=== PATIENT | female | born 1955 | race Caucasian/White ===

== ENCOUNTER 2017-12-01 08:31 | Emergency (ER) | payer BC ==
[2017-12-01 09:20] LABS: ABS Basophils 0 10^3/ul (0-0.2); ABS Eosinophils 0.1 10^3/ul (0-0.6); ABS Lymphocytes 1.4 10^3/ul (1.0-4.8); ABS Monocytes 0.6 10^3/ul (0-0.8); ABS Neutrophils 2.8 10^3/ul (1.5-7.7); ABS Nucleated RBC 0 10^3/ul; Hematocrit 43 % (35-47); Hemoglobin 14.7 g/dl (12.0-16.0); Lymphocyte % 27.9 % (25-47); Mean Corpuscular HGB Conc 35 g/dl (31-36); Mean Corpuscular Hemoglobin 32 pg (27-31); Mean Corpuscular Volume 94 fL (80-97); Mean Platelet Volume 9 um3 (7.4-10.4); Nucleated Red Blood Cells % 0; Platelet Count 207 10^3/ul (150-450); Red Blood Count 4.55 10^6/ul (4.0-5.4); Red Cell Distribution Width 13 % (10.5-15)
[2017-12-01 09:28] LABS: INR 0.9 (0.77-1.02)
--- NOTE | 2017-12-01 09:36 | RAD ---
HISTORY: Chest pain COMPARISONS: August 18, 2012 VIEWS: 1: frontal portable view of the chest at 9:15 AM FINDINGS: LINES AND TUBES: None. CARDIOMEDIASTINAL SILHOUETTE: The cardiomediastinal silhouette is normal for portable technique. PLEURA: The costophrenic angles are sharp. No pleural abnormalities are noted. LUNG PARENCHYMA: There is hyperinflation. ABDOMEN: The upper abdomen is clear. There is no subphrenic gas. BONES AND SOFT TISSUES: No bone or soft tissue abnormalities are noted. IMPRESSION: HYPERINFLATION. NO ACTIVE CARDIOPULMONARY DISEASE.
[2017-12-01 09:37] LABS: EGFR Non-African American 81.6 (>60)
[2017-12-01 12:02] LABS: Urine Appearance Clear; Urine Blood Negative (Negative); Urine Color Straw; Urine Ketones Negative (Negative); Urine Protein Negative (Negative); Urine Specific Gravity 1.008 (1.010-1.030); Urine Urobilinogen Negative (Negative)
[2017-12-01 12:34] VITALS: BP 140/81
--- NOTE | 2017-12-01 17:02 | ED ---
Shun Schroeder Thomas, scribed for Donis Carpenter MD on 12/01/17 at 0917 . HPI Chest Pain - HPI Summary HPI Summary: The patient is a 62 year old female presenting with episodes of chest pain that began yesterday. The episodes of pain last seconds, and she denies chest pain in the ED. She was recommended to present to the ED at the advice of her PMD. She describes the pain as an ache. Yesterday, the patient felt lightheaded. She denies nausea, vomiting, and near-syncope. - History of Current Complaint Chief Complaint: EDChestPainROMI Time Seen by Provider: 12/01/17 08:41 Hx Obtained From: Patient Onset/Duration: Started Days Ago - 1, Resolved Timing: Lasting Seconds Initial Severity: Mild Pain Intensity: 0 Pain Scale Used: 0-10 Numeric Character: Other: - Ache Aggravating Factor(s): Nothing Alleviating Factor(s): Spontaneous Resolution Associated Signs and Symptoms: Positive: Chest Pain, Other: - Lightheaded ( yesterday); NEGATIVE: nausea, vomiting, near-syncope - Allergy/Home Medications Allergies/Adverse Reactions: Allergies Allergy/AdvReac Type Severity Reaction Status Date / Time MS Ranitidine [Ranitidine] Allergy Unknown Verified 09/27/17 10:55 Reaction Details PMH/Surg Hx/FS Hx/Imm Hx Cardiovascular History: Reports: Hx Angina Denies: Hx Coronary Artery Disease, Hx Hypercholesterolemia, Hx Hypertension , Hx Myocardial Infarction, Hx Valvular Heart Disease Musculoskeletal History: Reports: Hx Back Problems - partial discectomy, Hx Osteoporosis Sensory History: Reports: Hx Contacts or Glasses Opthamlomology History: Reports: Hx Contacts or Glasses - Cancer History Cancer Type, Location and Year: had a cyt removed from left breast, - Surgical History Surgery Procedure, Year, and Place: partial discectomy 2000 Infectious Disease History: No Infectious Disease History: Denies: Traveled Outside the US in Last 30 Days - Family History Known Family History: Positive: Cardiac Disease - Mother decesased of [place] at 67 - Social History Alcohol Use: Daily Alcohol Amount: a beer per night Substance Use Type: Reports: None Smoking Status (MU): Never Smoked Tobacco Review of Systems Negative: Fever Positive: Chest Pain Negative: Vomiting, Nausea Neurological: Other - Lightheaded (yesterday) Negative: Syncope - near All Other Systems Reviewed And Are Negative: Yes Physical Exam - Summary Physical Exam Summary: VITAL SIGNS: Reviewed. GENERAL: Patient is a well-developed and nourished female who is lying comfortable in the stretcher. Patient is not in any acute respiratory distress. HEAD AND FACE: No signs of trauma. No ecchymosis, hematomas or skull depressions. No sinus tenderness. EYES: PERRLA, EOMI x 2, No injected conjunctiva, no nystagmus. EARS: Hearing grossly intact. Ear canals and tympanic membranes are within normal limits. MOUTH: Oropharynx within normal limits. NECK: Supple, trachea is midline, no adenopathy, no JVD, no carotid bruit, no c- spine tenderness, neck with full ROM. CHEST: Symmetric, no tenderness at palpation LUNGS: Clear to auscultation bilaterally. No wheezing or crackles. CVS: Regular rate and rhythm, S1 and S2 present, no murmurs or gallops appreciated. ABDOMEN: Soft, non-tender. No signs of distention. No rebound no guarding, and no masses palpated. Bowel sounds are normal. EXTREMITIES: FROM in all major joints, no edema, no cyanosis or clubbing. NEURO: Alert and oriented x 3. No acute neurological deficits. Speech is normal and follows commands. SKIN: Dry and warm Triage Information Reviewed: Yes Vital Signs On Initial Exam: Initial Vitals Temp Pulse Resp BP Pulse Ox 98.2 F 66 18 138/75 100 12/01/17 08:31 12/01/17 08:31 12/01/17 08:31 12/01/17 08:31 12/01/17 08:31 Vital Signs Reviewed: Yes Diagnostics - Vital Signs Vital Signs Temp Pulse Resp BP Pulse Ox 12/01/17 09:00 59 12 139/80 99 12/01/17 08:54 58 8 100 12/01/17 08:53 147/86 12/01/17 08:31 98.2 F 66 18 138/75 100 - Laboratory Result Diagrams: 12/01/17 09:10 12/01/17 09:10 Lab Statement: Any lab studies that have been ordered have been reviewed, and results considered in the medical decision making process. - Radiology CXR Xray Interpretation: No Acute Changes - HYPERINFLATION. NO ACTIVE CARDIOPULMONARY DISEASE. Dr. Carpenter has reviewed this report. Radiology Interpretation Completed By: Radiologist - EKG 09:42 Cardiac Rate: Bradycardia EKG Rhythm: Sinus Bradycardia - at 56 BPM EKG Interpretation: No ST elevations. Chest Pain Course/Dx - Course Assessment/Plan: The patient is a 62 year old female presenting with episodes of chest pain that began yesterday. The episodes of pain last seconds, and she denies chest pain in the ED. She was recommended to present to the ED at the advice of her PMD. She describes the pain as an ache. Yesterday, the patient felt lightheaded. Test results are without significant abnormalities. Two troponins four hours apart were 0.00. The patient continues to be asymptomatic without any chest pain. Test results are within normal limit. Therefore, the patient will be discharged home to follow up with primary care. The patient is hemodynamically stable and alert and oriented x 3. - Diagnoses Provider Diagnoses: Atypical chest pain Discharge - Discharge Plan Condition: Stable Disposition: HOME Patient Education Materials: Chest Pain (ED) Referrals: Octavia Sullivan MD [Primary Care Provider] - 3 Days Additional Instructions: Follow up with your primary care physician in three days. Return to the emergency department for any new or worsening symptoms. The documentation as recorded by the Shun keenan Thomas accurately reflects the service I personally performed and the decisions made by Jayden olmedo Walter, MD.
--- NOTE | 2017-12-03 09:08 | PN ---
Progress Note - Progress Note Date of Service: 12/01/17 Note: final urine culture results show group b strep 1-10,000. no complaints and no treatment required at this time.
== END 2017-12-01 12:33 | disposition home or self-care (01) ==
LOC: ED 08:31
DX: R07.89 Other chest pain (principal); Z88.8 Allergy status to other drugs, medicaments and biological substances
CPT/HCPCS: 36415; 71045; 80053; 81003; 81015; 82550; 82553; 83605; 83735; 83880; 84443; 84484; 85025; 85610; 85730; 87077; 87086; 93005; 99284

== ENCOUNTER 2019-04-07 10:14 | Emergency (ER) | payer BC ==
--- NOTE | 2019-04-07 10:17 | UC ---
Lower Extremity/Ankle HPI - HPI Summary HPI Summary: Patient is a 63 year old female, who present today to the urgent care with left ankle swelling for past 2 days. Noticed when she woke up in the morning on Monday. Denies any injury or trauma but reports a long drive to [place] prior to this. Earlier this week she had some knee pain posteriorly and swelling and pain. There is more pain than swelling. She denies any chest pain or shortness of breath. No fever, chills reported - History of Current Complaint Stated Complaint: SWOLLEN ANKLE Time Seen by Provider: 04/07/19 10:15 Hx Obtained From: Patient ?: No - postmenopausal - Allergies/Home Medications Allergies/Adverse Reactions: Allergies Allergy/AdvReac Type Severity Reaction Status Date / Time No Known Allergies Allergy Verified 04/07/19 10:26 Home Medications: Home Medications NK [No Home Medications Reported] 04/07/19 [History Confirmed 04/07/19] PMH/Surg Hx/FS Hx/Imm Hx - Additional Past Medical History Additional PMH: Past Medical History : None Past Surgical History: Partial discectomy in 2000 Family History : Noncontributory Social History : Occasional alcohol, non smoker, no drug use. 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 [place] Previously Healthy: Yes - Surgical History Surgical History: Yes Surgery Procedure, Year, and Place: partial discectomy 2000 - Family History Known Family History: Positive: Cardiac Disease - Mother decesased of [place] at 67 - Social History Alcohol Use: Daily Alcohol Amount: a beer per night Substance Use Type: None Smoking Status (MU): Never Smoked Tobacco - Immunization History Most Recent Tetanus Shot: <4years Review of Systems All Other Systems Reviewed And Are Negative: Yes Constitutional: Positive: Negative Skin: Positive: Other - Swelling of the left ankle Eyes: Positive: Negative ENT: Positive: Negative Respiratory: Positive: Negative Cardiovascular: Positive: Negative Gastrointestinal: Positive: Negative Genitourinary: Positive: Negative Motor: Positive: Negative Neurovascular: Positive: Negative Musculoskeletal: Positive: Arthralgia - Left posterior knee pain, Calf Tenderness Neurological: Positive: Negative Psychological: Positive: Negative Is Patient Immunocompromised?: No Physical Exam - Summary Physical Exam Summary: Vital Signs Reviewed: Yes A+Ox3, no distress Eyes: Conjunctiva Clear ENT: Hearing grossly normal neck: supple Respiratory: Positive: No respiratory distress, No accessory muscle use Cardiovascular: skin color reflect adequate perfusion Neurological: Positive: Alert, ambulatory without difficulty Psychological: Positive: Normal Response To Family Skin: Positive: no rash, no ecchymosis Left knee: There is joint effusion, no tenderness to palpation, full range of motion, Melvin test is negative, as well as his predecessor is negative Left calf: Swelling is noted along with calf tenderness Left Ankle: Inspection/palpation: Nonpitting edema noted, no significant area of tenderness Ankle mortise appears intact. ROM: full AROM, pain-free Strength: 5/5 with dorsiflexion, plantarflexion, inversion and eversion Special tests:Anterior drawer test is negative . Side to side test negative.Talar tilt test(inversion stress) and the eversion stress test negative. Negative Squeeze and External Rotation tests. Heel tap test negative. Left Feet: Insp/Palp: Feet normal to inspection Strength: EHL 5/5 blaterally Skin: No scars, rashes, lesions or ecchymosis. 2+ posterior tibial and dorsalis pedis pulse bilaterally. Neuro: Sensation to light touch is intact in the lower extremities bilaterally. Coordination normal. Triage Information Reviewed: Yes Vital Signs Reviewed: Yes Lower Extremity Course/Dx - Course Course Of Treatment: During the visit today, we discussed the findings and further plan to rule out DVT given recent long drive and no trauma. Patient needs additional testing, thus ER transfer advised and patient agrees. Report called to the ER provider ()at [facility], advised provider of the history, physical examination, and duration of illness and the need for definitive management. Patient expressed understanding and she will drive to the ER immediately. Her vitals are stable at the time of discharge - Differential Dx/Diagnosis Differential Diagnosis/HQI/PQRI: DVT Provider Diagnosis: Tenderness of left calf, Swelling of left ankle joint Discharge - Sign-Out/Discharge Documenting (check all that apply): Patient Departure All imaging exams completed and their final reports reviewed: No Studies - Discharge Plan Condition: Stable Disposition: HOME-RECOMMEND TO ED Patient Education Materials: Deep Vein Thrombosis (ED), Leg Edema (ED) Referrals: Octavia Sullivan MD [Primary Care Provider] - As Soon As Possible Additional Instructions: Plan to rule out DVT . Patient needs additional testing, thus ER transfer advised and patient agrees. Report called to the ER provider ()at [facility], advised provider of the history, physical examination, and duration of illness and the need for definitive management. Patient expressed understanding and she will drive to the ER immediately Patients blood pressure slightly high in Urgent care today , plan follow up with PCP for better control - Billing Disposition and Condition Condition: STABLE Disposition: Home-Recommend to ED
--- OUTSIDE RECORDS SUMMARY | 2019-04-07 10:20 | XMS REPORT | Continuity of Care Document ---
:1955 External Reference #:[id number] Author Name Candida Palma O.D. Address [address] [place] [address] Care Team Providers Name Role Phone Octavia Sullivan M.D. Primary Care Physician Unavailable Payers Date Identification Numbers Payment Provider Subscriber Policy Number: [id number] [facility] Adilene Mir PayID: [id number] [address] [place] [id number] Problems Active Problems Provider Date Osteoporosis Onset: Seasonal allergy Onset: Ocular hypertension Candida Palma O.D. Onset: 01/27/2016 Myopia Candida Palma O.D. Onset: 01/27/2016 Presbyopia Candida Palma O.D. Onset: 01/27/2016 Regular astigmatism Candida Palma O.D. Onset: 02/22/2018 Vitreous degeneration Candida Palma O.D. 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 Employment ETOH Use Occasionally consumes alcohol Tobacco Use Start: Unknown Patient has never smoked Recreational Drug Use Denies Drug Use Smoking Status Reviewed: 03/26/19 Patient has never smoked Allergies, Adverse Reactions, Alerts Description No Known Drug Allergies Medications Active Medications SIG Qnty Indications Ordering Provider Date Calcium + D Unknown Procedures Date Code Description Status 04/06/2018 75299 Est Patient Intermediate Exam Completed 03/08/2018 64099 Est Patient Intermediate Exam Completed 02/22/2018 90022 Scanning Computerized Ophthalmic Diagnostic Imag Posterior Completed Seg On 02/22/2018 51298 Determination Of Refractive State Completed 02/22/2018 17216 Est Patient Comprehensive Exam Completed 02/03/2017 34148 Determination Of Refractive State Completed 02/03/2017 08738 Est Patient Comprehensive Exam Completed 01/27/2016 91099 Determination Of Refractive State Completed 01/27/2016 12641 Est Patient Comprehensive Exam Completed 10/24/2014 80981 Determination Of Refractive State Completed 10/24/2014 89506 Est Patient Comprehensive Exam Completed 10/03/2011 95086 Determination Of Refractive State Completed 10/03/2011 49164 Est Patient Comprehensive Exam Completed Encounters Type Date Location Provider Dx Diagnosis Office Visit 10/04/2012 Esteban Hernandez, Vitaliy Le, 365.04 Ocular Hypertension 8:30a , romero Musa. Plan of Treatment 03/26/2019 - Candida Palma O.D.H43.813 Vitreous degeneration, bilateralComments:Smoking can increase the risk of developing or worsening any eye related disease, as well as affect your overall health. If you are a smoker , we strongly recommend that you quit.If you are not a smoker, we strongly recommend that you do not start. You have a Posterior Vitreous Detachment. If you have any changes in your floaters or flashing lights, please contact this office.Follow up:2 YEARS You can expect to have your eyes dilated at your next visit. If Dr. Palma orders any additional testing, it may require extra time. We recommend that you bring sunglasses, as dilation drops often make you light sensitive until they wear off. We always recommend you bring someone to drive [employer] if you are uncomfortable driving with your eyes dilated. If you have any questions before your next visit, feel free to call our office at .H52.13 Myopia, bilateralComments:You have Myopia, or near sightedness. I have given you a prescription for glasses.H52.4 PresbyopiaComments:You have presbyopia. This is when the lens in your eye loses the ability to change focus , and happens as we age. A pair of reading glasses will help you see up close.H52.223 Regular astigmatism, bilateralComments:Astigmatism is a common vision condition that happens when a person's cornea is not symmetrical. Dr. Palma has given you a prescription to correct for this.
[2019-04-07 10:25] VITALS: BP 133/64
== END 2019-04-07 10:56 | disposition home health service (06) ==
LOC: UCEAST 10:14
DX: R22.42 Localized swelling, mass and lump, left lower limb (principal); M79.662 Pain in left lower leg
CPT/HCPCS: 99212; G0463

== ENCOUNTER 2019-04-07 11:12 | Emergency (ER) | payer BC ==
[2019-04-07 14:59] VITALS: BP 160/79
--- NOTE | 2019-04-08 18:44 | ED ---
Lower Extremity - HPI Summary HPI Summary: Pt. is a 63 y.o female who presents to the ER for swelling to left ankle and lower extremity x several days. Pt. does not recall any specific ankle injury but does not she twisted knee a few days ago but pain has resolved to knee. Pt. notes a recent long car trip as well. Pt. denies past medical hx. Denies CP, SOB , fever. Pt. has some discomfort to left ankle but minimal. Sxs are mild in severity. Walking makes sxs worse. Rest makes sxs better. - History of Current Complaint Chief Complaint: EDExtremityLower Stated Complaint: TENDERNESS IN LEFT CALF/SWELLING IN LEFT ANLKE/PT Time Seen by Provider: 04/07/19 12:32 Hx Obtained From: Patient Pain Intensity: 0 Pain Scale Used: 0-10 Numeric - Allergies/Home Medications Allergies/Adverse Reactions: Allergies Allergy/AdvReac Type Severity Reaction Status Date / Time No Known Allergies Allergy Verified 04/07/19 11:18 PMH/Surg Hx/FS Hx/Imm Hx Previously Healthy: Yes Cardiovascular History: Reports: Hx Angina Denies: Hx Coronary Artery Disease, Hx Hypercholesterolemia, Hx Hypertension , Hx Myocardial Infarction, Hx Valvular Heart Disease Musculoskeletal History: Reports: Hx Back Problems - partial discectomy, Hx Osteoporosis Sensory History: Reports: Hx Contacts or Glasses Opthamlomology History: Reports: Hx Contacts or Glasses - Cancer History Cancer Type, Location and Year: had a cyt removed from left breast, - Surgical History Surgery Procedure, Year, and Place: partial discectomy 2000 - Immunization History Date of Tetanus Vaccine: within 10 years Date of Influenza Vaccine: Winter 2017 Immunizations Up to Date: Yes Infectious Disease History: No Infectious Disease History: Denies: Traveled Outside the [place] in Last 30 Days - Family History Known Family History: Positive: Cardiac Disease - Mother decesased of [place] at 67, Non-Contributory - Social History Occupation: Employed Full-time Lives: With Family Alcohol Use: Daily Alcohol Amount: a beer per night Substance Use Type: Reports: None Smoking Status (MU): Never Smoked Tobacco Review of Systems Constitutional: Negative Negative: Fever Cardiovascular: Negative Negative: Chest Pain Respiratory: Negative Negative: Shortness Of Breath Positive: Other - left lower leg swelling. Skin: Negative Negative: Rash, Bruising Neurological: Negative Negative: Weakness, Paresthesia, Numbness All Other Systems Reviewed And Are Negative: Yes Physical Exam Triage Information Reviewed: Yes Vital Signs On Initial Exam: Initial Vitals Temp Pulse Resp BP Pulse Ox 98.6 F 61 16 167/93 98 04/07/19 11:15 04/07/19 11:15 04/07/19 11:15 04/07/19 11:15 04/07/19 11:15 Vital Signs Reviewed: Yes Appearance: Positive: Well-Appearing - Pt. sitting on bed in NAD> Skin: Positive: Warm, Dry Head/Face: Positive: Normal Head/Face Inspection Eyes: Positive: Normal, EOMI Musculoskeletal: Positive: Other - MIld-moderate edema noted diffusely to left ankle with minimal pain on palpation and ROM. No overlying wounds, erythema or increased warmth. Edema extends mildly into calf. Normal pedal pulse. Neurological: Positive: Normal, CN Intact II-III Psychiatric: Positive: Affect/Mood Appropriate Diagnostics - Vital Signs Vital Signs Temp Pulse Resp BP Pulse Ox 04/07/19 14:57 97.6 F 58 16 160/79 97 04/07/19 12:35 97.5 F 66 17 170/85 100 04/07/19 11:15 98.6 F 61 16 167/93 98 - Laboratory Lab Statement: Any lab studies that have been ordered have been reviewed, and results considered in the medical decision making process. Lower Extremity Course/Dx - Course Course Of Treatment: Pt. presenting with unilateral left LE edema. No signs of infection on exam. Venous duplex negative for DVT. Xray negative for acute findings per radiology. Lyme titer ordered as well and is pending. Unclear of etiology. Potentially secondary to recent knee strain. Advised ice and elevation. NSAIDS. Will f.u with PCP for further evaluation. To return to ER if sxs change or worsen. - Diagnoses Differential Diagnosis/HQI/PQRI: Positive: Arthritis, Cellulitis, Contusion, DVT , Fracture (Closed), Sprain, Strain Provider Diagnoses: Lower extremity edema Discharge - Sign-Out/Discharge Documenting (check all that apply): Patient Departure Patient Received Moderate/Deep Sedation with Procedure: No - Discharge Plan Condition: Good Disposition: HOME Patient Education Materials: Leg Edema (ED) Referrals: Octavia Sullivan MD [Primary Care Provider] - Additional Instructions: Follow up with PCP for further evaluation is swelling continues Continue ice, elevation, and compression Motrin for pain as directed Will call if Lyme test is positive Return to ER if symptoms change or worsen - Billing Disposition and Condition Condition: GOOD Disposition: Home
[2019-04-09 22:36] LABS: B garinii/B afzelii PCR Negative (Negative); B mayonii PCR Negative (Negative)
== END 2019-04-07 14:57 | disposition home or self-care (01) ==
LOC: ED 11:12
DX: R60.0 Localized edema (principal); M25.572 Pain in left ankle and joints of left foot
CPT/HCPCS: 87476; 87798; 99281